=== PATIENT | male | born 1950 | race Caucasian/White ===

== ENCOUNTER 2018-08-29 07:35 | Day surgery (SDC) | payer OTHER ==
[2018-08-23 11:22] VITALS: BMI 29.9
[2018-08-29] MEDS ORDERED: PROPOFOL 20 ML ONE ×2 (07:40)
[2018-08-29 11:13] VITALS: PULSE 53
[2018-08-29 12:07] VITALS: BP 128/68; TEMP 98.1
--- NOTE | 2018-08-31 14:26 | PATH ---
Surgical Pathology Report Patient Name: KALINA TAPIA [facility]. Rec. #: [id number] /Age/Gender: 1950 (Age: 67) / M Account: [id number] Location: [facility] Taken: 08/29/2018 Received: 08/29/2018 Reported: 08/31/2018 Physicians: Franki Duncan M.D. Specimen(s) Received A: LEFT COLON B: RECTUM Clinical History Rule out colon cancer Postoperative diagnosis: Polyps Final Diagnosis A. LEFT COLON, POLYP, POLYPECTOMY: TUBULAR ADENOMA. B. RECTUM, POLYP, POLYPECTOMY: TUBULAR ADENOMA WITH HIGH-GRADE DYSPLASIA. THE CAUTERIZED TISSUE EDGE IS UNINVOLVED BY HIGH-GRADE DYSPLASIA. Note: Case discussed with Dr. Franki Duncan on 08/30/18. Electronically Signed Marilyn Parsons M.D. Gross Description A. Received in formalin, labeled "left colon" are 2 chaves, irregular portions of soft tissue measuring 0.2 and 0.3 cm. in greatest dimension. The specimens are submitted in toto in one cassette. B. Received in formalin labeled "rectum," are 2 chaves, irregular and polypoid portions of soft tissue measuring 0.4 and 0.9 cm in greatest dimension. The specimen is submitted in toto in one cassette 08/29/201808/29/2018
== END 2018-08-29 11:00 | disposition home or self-care (01) ==
LOC: FASU-ENDO 07:35
PROVIDERS: ATTEND Internal Medicine Gastroenterology
PROC: 3E0H8GC Introduction of Other Therapeutic Substance into Lower GI, Via Natural or Artificial Opening Endoscopic (ICD-10-PCS; 2018-08-29)
PROC: 0DBM8ZX Excision of Descending Colon, Via Natural or Artificial Opening Endoscopic, Diagnostic (ICD-10-PCS; principal; 2018-08-29 09:30)
PROC: 0DBP8ZX Excision of Rectum, Via Natural or Artificial Opening Endoscopic, Diagnostic (ICD-10-PCS; 2018-08-29 09:30)
DX: Z12.11 Encounter for screening for malignant neoplasm of colon (principal); K57.30 Diverticulosis of large intestine without perforation or abscess without bleeding; D12.4 Benign neoplasm of descending colon; D12.8 Benign neoplasm of rectum
CPT/HCPCS: 88305-TC; 88309-TC

== ENCOUNTER 2019-09-11 07:07 | Day surgery (SDC) | payer OTHER ==
[2019-09-05 11:30] VITALS: BMI 29.8
[2019-09-11 07:22] VITALS: TEMP 98.3
[2019-09-11] MEDS ORDERED: LIDOCAINE HCL/PF 2% SDV 5ML VIAL ONE (07:31)
[2019-09-11] MEDS ORDERED: PROPOFOL 20 ML ONE ×4 (07:32)
[2019-09-11 09:30] VITALS: BP 120/60; PULSE 68
--- NOTE | 2019-09-13 14:13 | PATH ---
Surgical Pathology Report Patient Name: KALINA TAPIA [facility]. Rec. #: [id number] /Age/Gender: 1950 (Age: 69) / M Account: [id number] [facility] Taken: 09/11/2019 Received: 09/11/2019 Reported: 09/13/2019 Physicians: Franki Duncan M.D. Specimen(s) Received POLYP RECTUM Clinical History History of polyps Postoperative diagnosis: Diverticulosis, colon polyp Final Diagnosis RECTUM POLYP, POLYPECTOMY: TUBULAR ADENOMA. Electronically Signed Karthik Myers M.D. Gross Description Received in formalin, labeled "biopsy polyp rectum" are 2 chaves, irregular portions of soft tissue measuring 0.3 and 0.4 cm. in greatest dimension. The specimens are submitted in toto in one cassette. 09/12/201909/12/2019
== END 2019-09-11 09:25 | disposition home or self-care (01) ==
LOC: FASU-ENDO 07:07
PROVIDERS: ATTEND Internal Medicine Gastroenterology
PROC: 0DBP8ZX Excision of Rectum, Via Natural or Artificial Opening Endoscopic, Diagnostic (ICD-10-PCS; principal; 2019-09-11 08:35)
DX: Z86.010 Personal history of colon polyps (principal); D12.8 Benign neoplasm of rectum
CPT/HCPCS: 88305-TC